=== PATIENT | female | born 1985 ===

== ENCOUNTER 2020-11-22 15:42 | Emergency (ER) | payer MEDICAID ==
[2020-11-22 16:18] VITALS: BP 110/81
[2020-11-22] MEDS ORDERED: HYDROcodone/ACETAMINOPHEN 10-325MG TAB PO ONE (16:20)
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
== END 2020-11-22 20:38 | disposition home or self-care (01) ==
LOC: ED 15:42
DX: S13.9XXA Sprain of joints and ligaments of unspecified parts of neck, initial encounter (principal); S66.911A Strain of unspecified muscle, fascia and tendon at wrist and hand level, right hand, initial encounter; S00.83XA Contusion of other part of head, initial encounter; Z98.890 Other specified postprocedural states; Z79.899 Other long term (current) drug therapy; Z88.0 Allergy status to penicillin; Y04.2XXA Assault by strike against or bumped into by another person, initial encounter; Y93.89 Activity, other specified; Y92.89 Other specified places as the place of occurrence of the external cause; Y99.8 Other external cause status
CPT/HCPCS: 70450; 70486; 72125